=== PATIENT | male | born 1970 | race Caucasian/White ===

== ENCOUNTER → 2016-08-22 | Day surgery (SDC) | payer OTHER ==
[~2016-08-22] MED LIST: ONDANSETRON HCL4 M1 PO; VOLTAREN50 MG
--- NOTE | ~2016-08-22 | OR ---
Unit #: [id number] #: [id number] Patient: BHAVANA MAYA [id number] [facility]. [address] [place], [place] [address] [id number] O MR#: [id number] NAME: BHAVANA MAYA ROOM: Date of Procedure: 08/22/2016 Admission Date: 08/22/2016 Surgeon: Dick Srivastava Jr., M.D. : 1970 Attending Physician: Dick Srivastava Jr., M.D. OPERATIVE REPORT INDICATIONS FOR PROCEDURE The patient is a 46-year-old white male, who recently presented to the office complaining of intermittent right upper quadrant and mid epigastric abdominal pain. He has been worked up and noted to have evidence of extensive cholelithiasis. He is brought in this time for laparoscopic cholecystectomy at his request. He understands the procedure including the risks, including that of common duct injury, biliary leak, and bleeding, and intra-abdominal organ injury, and consents. PREOPERATIVE DIAGNOSES Biliary colic with chronic cholecystitis and cholelithiasis. POSTOPERATIVE DIAGNOSES Biliary colic with chronic cholecystitis and cholelithiasis, noting a gallbladder full of gallstones. These were all small. Also adhesions in the left lower quadrant of the abdomen compatible with some previous chronic diverticulitis. ANESTHESIA General with endotracheal intubation and 0.5% Marcaine with epinephrine locally. PROCEDURE PERFORMED Laparoscopic cholecystectomy. DESCRIPTION OF PROCEDURE The patient was positioned in supine position. After being anesthetized and intubated, he was prepped and draped in routine fashion for laparoscopic cholecystectomy. A small supraumbilical incision was made approximately 1 cm in length. This was carried down to the fascia. The fascia and umbilicus were lifted with a towel clip and a Veress needle introduced in the abdomen. The abdomen was then inflated with CO2 gas. A 5-mm port was introduced into the abdomen followed by the camera. There was no evidence of any injury related to introduction of the port of the Veress needle. Brief intra-abdominal exploration was carried out. The patient was noted to have a chronically inflamed gallbladder with adhesions in the left lower quadrant of the abdomen noted compatible with previous chronic diverticulitis. Two 5-mm ports were placed laterally and an 11-mm port just to the right of the upper midline and the gallbladder was then lifted, it was full of stones. It was dissected near the triangle of Calot. The cystic duct being isolated hemoclipped x4 and divided approximately a 1.5 cm from its junction with the common duct. Unit #: [id number] #: [id number] Patient: BHAVANA MAYA The cystic duct was only 1 mm or so in diameter. Cystic artery was identified, hemoclipped x3, and divided. The gallbladder was then removed from its bed with the hook cautery using a current of 20 and after it was released, it was removed through the upper midline incision along with the grasping clamp and the port. It was decompressed and multiple stones were removed with the sponge stick prior to removal of the gallbladder. After it was removed, the port was replaced. Subhepatic space checked. There was no evidence of any bleeding from the gallbladder bed. The clips on cystic duct and cystic artery were intact with no evidence of any leak or bleeding. The fascia in the larger port site was then approximated with the neoClose technique. The ports were removed. There was no evidence of any bleeding from the port sites. CO2 was expressed from the abdomen. An additional [id number] stitch was used on the fascia of the rectus sheath. This was a 0 Vicryl stitch. The wounds were irrigated. After hemostasis achieved with Bovie cautery, skin edges were approximated with stainless-steel skin clips and skin stapling device. Sterile dressings were applied externally. Estimated blood loss less than 20 mL. The patient received less than 1000 mL crystalloid solution during the procedure. Sponges and instrument counts were correct x3. No drains used. No complications. The patient was taken to the recovery room with stable vital signs in satisfactory condition. Dictated by... Dick Srivastava Jr., M.D. JMB/negro TD: 08/23/2016 03:37 JOB #: [id number] CC: Eber Lundberg M.D. OPERATIVE REPORT Page 1 of 1 X Dick Srivastava MD X PROCEDURE OPERATIVE NOTE
[2016-08-22 07:56] LABS: ALBUMIN SERUM 4.2 g/dL (3.5-5.0); BILIRUBIN,TOTAL 0.7 mg/dL (0.2-2.0); BUN/CREATININE RATIO 13.75; CALCIUM SERUM 8.9 mg/dL (8.4-10.2); CREATININE SERUM 0.8 mg/dL (0.6-1.4); GLOM FILT RATE Estimated 108.7 mL/min (>60); POTASSIUM 3.5 mmol/L (3.5-5.1); PROTEIN TOTAL SERUM 6.7 g/dL (6.0-8.3)
== END | disposition home or self-care (01) ==
LOC: CSUR 06:49
PROVIDERS: Surgery
DX: K80.10 Calculus of gallbladder with chronic cholecystitis without obstruction (principal); K66.0 Peritoneal adhesions (postprocedural) (postinfection); E11.9 Type 2 diabetes mellitus without complications; F17.210 Nicotine dependence, cigarettes, uncomplicated; Z98.890 Other specified postprocedural states
CPT/HCPCS: 80053; 82947; 88304; J0330; J0690; J1650; J2250; J2370; J2710; J3010